=== PATIENT | female | born 1945 | race Caucasian/White ===

== ENCOUNTER 2018-09-27 11:51 | Observation (INO) | payer MEDICARE, BC ==
--- NOTE | 2018-09-27 12:38 | EDM.PDOC ---
ED HPI GENERAL MEDICAL PROBLEM - General Stated Complaint: N & V Diarrhea Time Seen by Provider: 09/27/18 12:36 - History of Present Illness INITIAL COMMENTS - FREE TEXT/NARRATIVE: Pt was brought in by ambulance by EMS. According to patient she claims she woke up at 4 Am today and had episode of vomiting. Since then she has been wretching and vomiting on and off. Vomitus is clear . Also she has had few loose stools since then. Last episode of loose stool was at 10 am today. No abdominal pain or distension. No fever or chills. No cough. Pt does have COPD and does use oxygen at home, her SPO2 is 100% on 4 liters O2. Pt was started on keflex for UTI and her think that might be the cause of her vomiting. No other complaints. Onset: Today Onset Date: 09/27/18 Onset Time: 04:00 Severity: Moderate - Related Data Allergies Allergy/AdvReac Type Severity Reaction Status Date / Time No Known Allergies Allergy Verified 09/27/18 12:27 ED ROS GENERAL - Review of Systems Review Of Systems: See Below Constitutional: Denies: Fever, Chills, Weakness HEENT: Reports: Other (hydration appears appropriate. Tongue adn waqas mucosa pink and moist. ). Denies: Rhinitis, Throat Pain, Throat Swelling Respiratory: Denies: Shortness of Breath, Wheezing, Pleuritic Chest Pain, Cough , Sputum Cardiovascular: Denies: Chest Pain, Lightheadedness GI/Abdominal: Reports: Diarrhea, Flatus, Vomiting. Denies: Abdominal Pain, Constipation, Distension, Nausea : Denies: Dysuria, Frequency Musculoskeletal: Denies: Joint Pain, Joint Swelling Skin: Denies: Bruising, Pruritis, Rash Neurological: Denies: Confusion, Dizziness ED EXAM, GENERAL - Physical Exam Exam: See Below Exam Limited By: No Limitations General Appearance: Alert, WD/WN, No Apparent Distress, Other (wretching in the emergency room, but no vomiting) Eye Exam: Bilateral Eye: EOMI, PERRL Ears: Normal External Exam, Normal Canal, Hearing Grossly Normal, Normal TMs Ear Exam: Bilateral Ear: Auricle Normal, Canal Normal, TM normal Nose: Normal Inspection, Normal Mucosa, No Blood Throat/Mouth: Normal Inspection, Normal Lips, Normal Teeth, Normal Gums, Normal Oropharynx, Normal Voice, No Airway Compromise, Other (oral mucosa and tongue are moist.) Head: Atraumatic, Normocephalic Neck: Normal Inspection, Supple, Non-Tender, Full Range of Motion Respiratory/Chest: No Respiratory Distress, Lungs Clear, Normal Breath Sounds, No Accessory Muscle Use, Chest Non-Tender Cardiovascular: Normal Peripheral Pulses, Regular Rate, Rhythm, No Edema, No Gallop, No JVD, No Murmur, No Rub GI/Abdominal: Normal Bowel Sounds, Soft, Non-Tender, No Organomegaly, No Distention, No Abnormal Bruit, No Mass Extremities: Normal Inspection, Normal Range of Motion, Non-Tender, Normal Capillary Refill, No Pedal Edema Neurological: Alert, Oriented Course - Vital Signs Text/Narrative:: Pt's CBC and BMP appear normal She does have low grade fever. Started with vomiting in the morning and had few bouts of diarrhea appears like viral gastroenteritis. Pt did has not and any episode of vomiting or diarrhea for about 2 hrs in the emergency room. She did receive 500ml of NS bolus and also zofran 4mg ODT. She has remained stable. Hydration is appropriate and renal function are stable. Pt and spouse reassured that patient might have had viral GE, which has settle down. Advised to control nausea and vomiting with zofran 4mg 3 times daily. Clear liquid diet for next 48 hrs. The diarrhea should gradually decrease. Pt advised to followup with her primary care provider next week for recheck. Last Recorded V/S: Last Vital Signs Temp 100.6 F 09/27/18 12:20 Pulse 66 09/27/18 12:20 Resp BP 99/55 L 09/27/18 12:20 Pulse Ox 92 L 09/27/18 12:20 - Orders/Labs/Meds Labs: Laboratory Tests 09/27/18 09/27/18 Range/Units 12:45 12:45 WBC 8.4 (4.0-11.0) K/uL RBC 4.39 (3.80-5.80) M/uL Hgb 13.3 (11.5-16.5) g/dL Hct 42.5 (37.0-47.0) % MCV 97 H (76-96) fL MCH 30.3 (27.0-32.0) pg MCHC 31.3 (31.0-35.0) g/dL RDW 14.2 (11.0-16.0) % Plt Count 112 L (150-500) K/uL MPV 12.4 H (6.0-10.0) fL Neut % (Auto) 87.3 H (45.0-70.0) % Lymph % (Auto) 4.4 L (20.0-40.0) % [place] % (Auto) 7.4 (3.0-10.0) % Eos % (Auto) 0.7 L (1.0-5.0) % Baso % (Auto) 0.2 (0.0-0.5) % Neut # (Auto) 7.29 (2.00-7.50) K/uL Lymph # (Auto) 0.37 L (1.50-4.00) K/uL [place] # (Auto) 0.62 (0.20-0.80) K/uL Eos # (Auto) 0.06 (0.04-0.40) K/uL Baso # (Auto) 0.02 (0.02-0.10) K/uL Sodium 142 (136-145) mmol/L Potassium 3.9 (3.5-5.1) mmol/L Chloride 101 (98-107) mmol/L Carbon Dioxide 31.8 (21.0-32.0) mmol/L Anion Gap 13.1 (5.0-15.0) mmol/L BUN 15 (8-26) mg/dL Creatinine 0.83 (0.55-1.02) mg/dL Est Cr Clr Drug Dosing TNP Estimated GFR (MDRD) > 60 (>60) MLS/MIN BUN/Creatinine Ratio 18.1 (6-25) Glucose 230 H (74-100) mg/dL Calcium 8.7 (8.5-10.1) mg/dL Total Bilirubin 1.2 H (0.0-1.0) mg/dL AST 24 (15-37) U/L ALT 27 (12-78) U/L Alkaline Phosphatase 46 (46-116) U/L Total Protein 6.2 L (6.4-8.2) g/dL Albumin 3.0 L (3.4-5.0) g/dL Globulin 3.2 (2.2-4.2) g/dL Albumin/Globulin Ratio 0.9 (0.8-2.0) Meds: Medications Discontinued Medications Generic Name Dose Route Start Last Admin Trade Name Andriy PRN Reason Stop Dose Admin Ondansetron HCl Confirm 09/27/18 13:49 Zofran Odt Administered 09/27/18 13:50 Dose 4 mg .ROUTE .STK-MED ONE Departure - Departure Time of Disposition: 14:00 Disposition: Home, Self-Care 01 Condition: Fair Clinical Impression: Viral gastroenteritis - Discharge Information *PRESCRIPTION DRUG MONITORING PROGRAM REVIEWED*: Not Applicable *COPY OF PRESCRIPTION DRUG MONITORING REPORT IN PATIENT LESIA: Not Applicable Additional Instructions: Pt's CBC and BMP appear normal She does have low grade fever. Started with vomiting in the morning and had few bouts of diarrhea appears like viral gastroenteritis. Pt did has not and any episode of vomiting or diarrhea for about 2 hrs in the emergency room. She did receive 500ml of NS bolus and also zofran 4mg ODT. She has remained stable. Hydration is appropriate and renal function are stable. Pt and spouse reassured that patient might have had viral GE, which has settle down. Advised to control nausea and vomiting with zofran 4mg 3 times daily. Clear liquid diet for next 48 hrs. The diarrhea should gradually decrease. Pt advised to followup with her primary care provider next week for recheck. - Problem List & Annotations (1) Viral gastroenteritis SNOMED Code(s): 354555587 Code(s): A08.4 - VIRAL INTESTINAL INFECTION, UNSPECIFIED Status: Acute Current Visit: Yes - Problem List Review Problem List Initiated/Reviewed/Updated: Yes - Assessment/Plan Assessment:: Viral GE Plan: Pt's CBC and BMP appear normal She does have low grade fever. Started with vomiting in the morning and had few bouts of diarrhea appears like viral gastroenteritis. Pt did has not and any episode of vomiting or diarrhea for about 2 hrs in the emergency room. She did receive 500ml of NS bolus and also zofran 4mg ODT. She has remained stable. Hydration is appropriate and renal function are stable. Pt and spouse reassured that patient might have had viral GE, which has settle down. Advised to control nausea and vomiting with zofran 4mg 3 times daily. Clear liquid diet for next 48 hrs. The diarrhea should gradually decrease. Pt advised to followup with her primary care provider next week for recheck.
[2018-09-27] MEDS ORDERED: Ondansetron 4 MG Tab.DIS ONE ×2 (13:49→14:00)
[2018-09-27] MEDS ORDERED: Sodium Chloride 0.9% 500 ML IV ONE (13:53)
[2018-09-27] MEDS ORDERED: Ondansetron 4 MG Tab.DIS PO ONE (15:53)
[2018-09-27] MEDS: Sodium Chloride 0.9% 1,000 ML IV SCH ×2 (16:00→22:20)
[2018-09-27] MEDS ORDERED: Ondansetron 4 MG/2 ML SDV IV PRN (16:41)
[2018-09-27] MEDS ORDERED: Sodium Chloride 0.9% 10 ML Syringe FLUSH PRN (16:41)
[2018-09-27] MEDS: predniSONE 5 MG Tab PO SCH (17:14)
[2018-09-27] MEDS ORDERED: Albuterol/Ipratropium 3.0-0.5 MG/3 ML Neb Soln NEB SCH (18:00)
[2018-09-27] MEDS ORDERED: Ipratropium 0.02% 0.5 MG/2.5 ML Neb Soln INH SCH (20:00)
[2018-09-27] MEDS ORDERED: Non-Formulary Medication 1 Each (Formoterol [Perforomist] 2 ML) IN SCH (20:00)
[2018-09-27] MEDS ORDERED: Acetaminophen 325 MG Tab PO PRN (21:05)
[2018-09-27] MEDS ORDERED: LORazepam 2 MG/ML SDV IM ONE (21:37)
[2018-09-27] MEDS ORDERED: Albuterol/Ipratropium 3.0-0.5 MG/3 ML Neb Soln NEB PRN (23:15)
[2018-09-28] MEDS: Sodium Chloride 0.9% 1,000 ML IV SCH (05:53)
[2018-09-28] MEDS: predniSONE 5 MG Tab PO SCH (07:59)
[2018-09-28] MEDS ORDERED: Oxybutynin 5 MG Tab.ER PO SCH (08:00)
--- NOTE | 2018-09-28 09:36 | PCM.DCSUM1 ---
Discharge Summary - Hospital Course Free Text/Narrative:: Pt was admitted yesterday with diagnosis of viral gastroenteritis, with acute diarrhea with nausea and vomiting for IV hydration. Pt did receive bolus of NS 500cc in the emergency room and was admitted for IV hydration of NS at 125cc/ hr. Pt has not had any episodes of vomiting or diarrhea since her admission. Pt was very weak yesterday and could not ambulate. Pt did have rios in place as she could not use a\bathroom yesterday and had incontinence and also she ahs a sacral decubitus ulcer stage 1. Today she has been feeding well and also able to walk to the bathroom and back to bed. Has been feeling better. As patient has been doing well and her Gastroenteritis has resolved and tolerating oral diet well,her Iv fluids have been discontinued. Has been planned for discharge. Pt advised to continue home meds and followup with her primary care provider this week for followup. Brief History: Presented to emergency room last morning with acute onset of diarrhea, nausea and vomiting. Pt was diagnosed with viral gastroentritis admitted to hospital for IV hydration. Diagnosis: Stroke: No - Discharge Data Discharge Date: 09/28/18 Discharge Disposition: DC/Tfer to Acute Hospital 02 Condition: Good - Discharge Diagnosis/Problem(s) (1) Viral gastroenteritis SNOMED Code(s): 188337032 ICD Code: A08.4 - VIRAL INTESTINAL INFECTION, UNSPECIFIED Status: Acute Current Visit: Yes - Patient Instructions Fluid Restriction: 1500 mL Activity: As Tolerated Showering/Bathing: October Shower - Discharge Plan *PRESCRIPTION DRUG MONITORING PROGRAM REVIEWED*: Not Applicable *COPY OF PRESCRIPTION DRUG MONITORING REPORT IN PATIENT LESIA: Not Applicable Home Medications: Home Meds Albuterol [Ventolin HFA] 2 inh INH Q4HWA 09/27/18 [History] Aspirin [Low Dose Aspirin EC] 81 mg PO DAILY 09/27/18 [History] Ergocalciferol (Vitamin D2) [Vitamin D2] 2,000 units PO DAILY 09/27/18 [History] Ferrous Sulfate 325 mg PO DAILY 09/27/18 [History] Formoterol [Perforomist] 2 ml IN BID 09/27/18 [History] Furosemide [Lasix] 20 mg PO ACLUNCH 09/27/18 [History] Furosemide [Lasix] 40 mg PO ACBREAKFAST 09/27/18 [History] Glimepiride [Amaryl] 2 mg PO ACDINNER 09/27/18 [History] Glimepiride [Amaryl] 4 mg PO ACBREAKFAST 09/27/18 [History] Insulin Glargine,Hum.Rec.Anlog [Basaglar Kwikpen U-100] 10 units SQ QPM [History] Ipratropium [Atrovent] 2.5 ml IN TID 09/27/18 [History] LORazepam 0.5 mg PO DAILY 09/27/18 [History] Metoprolol Succinate [Toprol Xl] 25 mg PO BID 09/27/18 [History] Omeprazole 20 mg PO DAILY 09/27/18 [History] Oxybutynin Chloride [Ditropan Xl] 20 mg PO DAILY 09/27/18 [History] Sulfamethoxazole/Trimethoprim [Bactrim 400-80 MG] 1 tab PO DAILY 09/27/18 [ History] Warfarin [Coumadin] 2.5 mg PO DAILY 09/27/18 [History] predniSONE [Prednisone] 15 mg PO DAILY 09/27/18 [History] Acetaminophen [Tylenol] 650 mg PO Q6H PRN tablet 09/28/18 [Rx] Albuterol/Ipratropium [DuoNeb 3.0-0.5 MG/3 ML] 3 ml NEB Q6H PRN neb 09/28/18 [ Rx] Referrals: PCP,None [Primary Care Provider] - - Discharge Summary/Plan Comment DC Time >30 min.: Yes - General Info Date of Service: 09/28/18 Functional Status: Reports: Pain Controlled, Ambulating, Urinating - Review of Systems General: Denies: Fever, Weakness, Fatigue HEENT: Denies: Headaches, Sinus Congestion, Sore Throat, Rhinitis Pulmonary: Denies: Shortness of Breath, Cough, Sputum, Hemoptysis Cardiovascular: Denies: Chest Pain, Lightheadedness Gastrointestinal: Reports: Flatus. Denies: Abdominal Pain, Diarrhea, Nausea, Vomiting Genitourinary: Denies: Dysuria, Burning Musculoskeletal: Denies: Joint Pain, Joint Swelling Skin: Denies: Bruising, Pruritis, Rash Neurological: Denies: Confusion, Dizziness, Headache, Numbness, Tingling - Patient Data Vitals - Most Recent: Last Vital Signs Temp 97.8 F 09/28/18 04:31 Pulse 100 09/27/18 21:00 Resp 22 H 09/27/18 21:00 BP 130/70 09/28/18 04:31 Pulse Ox 97 09/27/18 21:00 Weight - Most Recent: 111.765 kg I&O - Last 24 hours: Intake & Output 09/27/18 09/28/18 09/28/18 22:59 06:59 14:59 Intake Total 15 1931 Output Total 150 350 Balance -135 1581 Lab Results - Last 24 hrs: Laboratory Results - last 24 hr 09/27/18 09/27/18 09/27/18 Range/Units 12:45 12:45 15:16 WBC 8.4 (4.0-11.0) K/uL RBC 4.39 (3.80-5.80) M/uL Hgb 13.3 (11.5-16.5) g/dL Hct 42.5 (37.0-47.0) % MCV 97 H (76-96) fL MCH 30.3 (27.0-32.0) pg MCHC 31.3 (31.0-35.0) g/dL RDW 14.2 (11.0-16.0) % Plt Count 112 L (150-500) K/uL MPV 12.4 H (6.0-10.0) fL Neut % (Auto) 87.3 H (45.0-70.0) % Lymph % (Auto) 4.4 L (20.0-40.0) % [place] % (Auto) 7.4 (3.0-10.0) % Eos % (Auto) 0.7 L (1.0-5.0) % Baso % (Auto) 0.2 (0.0-0.5) % Neut # (Auto) 7.29 (2.00-7.50) K/uL Lymph # (Auto) 0.37 L (1.50-4.00) K/uL [place] # (Auto) 0.62 (0.20-0.80) K/uL Eos # (Auto) 0.06 (0.04-0.40) K/uL Baso # (Auto) 0.02 (0.02-0.10) K/uL Sodium 142 (136-145) mmol/L Potassium 3.9 (3.5-5.1) mmol/L Chloride 101 (98-107) mmol/L Carbon Dioxide 31.8 (21.0-32.0) mmol/L Anion Gap 13.1 (5.0-15.0) mmol/L BUN 15 (8-26) mg/dL Creatinine 0.83 (0.55-1.02) mg/dL Est Cr Clr Drug Dosing TNP Estimated GFR (MDRD) > 60 (>60) MLS/MIN BUN/Creatinine Ratio 18.1 (6-25) Glucose 230 H (74-100) mg/dL POC Glucose 257 H (74-110) mg/dL Calcium 8.7 (8.5-10.1) mg/dL Total Bilirubin 1.2 H (0.0-1.0) mg/dL AST 24 (15-37) U/L ALT 27 (12-78) U/L Alkaline Phosphatase 46 (46-116) U/L Total Protein 6.2 L (6.4-8.2) g/dL Albumin 3.0 L (3.4-5.0) g/dL Globulin 3.2 (2.2-4.2) g/dL Albumin/Globulin Ratio 0.9 (0.8-2.0) Urine Color Urine Appearance (CLEAR) Urine pH (5.0-8.0) Ur Specific [place] (1.003-1.030) Urine Protein (NEGATIVE) mg/dL Urine Glucose (UA) (NEGATIVE) mg/dL Urine Ketones (NEGATIVE) mg/dL Urine Occult Blood (NEGATIVE) Urine Nitrite (NEGATIVE) Urine Bilirubin (NEGATIVE) Urine Urobilinogen (0.2-1.0) E.U./dL Ur Leukocyte Esterase (NEGATIVE) Urine RBC /HPF Urine WBC /HPF Ur Squamous Epith Cells /HPF Urine Bacteria /HPF Hyaline Casts /HPF 09/27/18 09/28/18 Range/Units 21:32 07:20 WBC (4.0-11.0) K/uL RBC (3.80-5.80) M/uL Hgb (11.5-16.5) g/dL Hct (37.0-47.0) % MCV (76-96) fL MCH (27.0-32.0) pg MCHC (31.0-35.0) g/dL RDW (11.0-16.0) % Plt Count (150-500) K/uL MPV (6.0-10.0) fL Neut % (Auto) (45.0-70.0) % Lymph % (Auto) (20.0-40.0) % [place] % (Auto) (3.0-10.0) % Eos % (Auto) (1.0-5.0) % Baso % (Auto) (0.0-0.5) % Neut # (Auto) (2.00-7.50) K/uL Lymph # (Auto) (1.50-4.00) K/uL [place] # (Auto) (0.20-0.80) K/uL Eos # (Auto) (0.04-0.40) K/uL Baso # (Auto) (0.02-0.10) K/uL Sodium 141 (136-145) mmol/L Potassium 4.4 (3.5-5.1) mmol/L Chloride 106 (98-107) mmol/L Carbon Dioxide 30.3 (21.0-32.0) mmol/L Anion Gap 9.1 (5.0-15.0) mmol/L BUN 15 (8-26) mg/dL Creatinine 0.72 (0.55-1.02) mg/dL Est Cr Clr Drug Dosing 63.20 Estimated GFR (MDRD) > 60 (>60) MLS/MIN BUN/Creatinine Ratio 20.8 (6-25) Glucose 246 H (74-100) mg/dL POC Glucose (74-110) mg/dL Calcium 7.4 L (8.5-10.1) mg/dL Total Bilirubin (0.0-1.0) mg/dL AST (15-37) U/L ALT (12-78) U/L Alkaline Phosphatase (46-116) U/L Total Protein (6.4-8.2) g/dL Albumin (3.4-5.0) g/dL Globulin (2.2-4.2) g/dL Albumin/Globulin Ratio (0.8-2.0) Urine Color Brown Urine Appearance Cloudy (CLEAR) Urine pH 5.5 (5.0-8.0) Ur Specific [place] >= 1.030 (1.003-1.030) Urine Protein 100 H (NEGATIVE) mg/dL Urine Glucose (UA) 500 H (NEGATIVE) mg/dL Urine Ketones 80 H (NEGATIVE) mg/dL Urine Occult Blood Large H (NEGATIVE) Urine Nitrite Negative (NEGATIVE) Urine Bilirubin Moderate H (NEGATIVE) Urine Urobilinogen 0.2 (0.2-1.0) E.U./dL Ur Leukocyte Esterase Negative (NEGATIVE) Urine RBC 50-75 H /HPF Urine WBC Not seen /HPF Ur Squamous Epith Cells Rare /HPF Urine Bacteria Rare /HPF Hyaline Casts Occasional /HPF Med Orders - Current: Current Medications Acetaminophen (Tylenol) 650 mg PO Q6H PRN PRN Reason: Fever Last Admin: 09/27/18 21:54 Dose: 650 mg Albuterol/Ipratropium (Duoneb 3.0-0.5 Mg/3 Ml) 3 ml NEB Q6H PRN PRN Reason: Wheezing Stop: 09/28/18 18:01 Sodium Chloride (Normal Saline) 1,000 mls @ 125 mls/hr IV ASDIRECTED [facility] Last Admin: 09/28/18 05:53 Dose: 125 mls/hr Ondansetron HCl (Zofran) 4 mg IV Q6H PRN PRN Reason: Nausea/Vomiting Oxybutynin Chloride (Oxybutynin Er) 20 mg PO DAILY [facility] Last Admin: 09/28/18 07:58 Dose: 20 mg Prednisone (Prednisone) 15 mg PO DAILY [facility] Last Admin: 09/28/18 07:59 Dose: 15 mg Sodium Chloride (Saline Flush) 10 ml FLUSH ASDIRECTED PRN PRN Reason: Keep Vein Open Discontinued Medications Albuterol/Ipratropium (Duoneb 3.0-0.5 Mg/3 Ml) 3 ml NEB Q6H [facility] Stop: 09/28/18 18:01 Last Admin: 09/27/18 23:32 Dose: Not Given Sodium Chloride (Normal Saline) 500 mls @ 500 mls/hr IV .BOLUS ONE Stop: 09/27/18 14:52 Last Admin: 09/27/18 14:00 Dose: 500 mls/hr Ipratropium [place] (Atrovent) 0.5 mg INH TID [facility] Lorazepam (Ativan) 1 mg IM ONETIME ONE Stop: 09/27/18 21:38 Last Admin: 09/27/18 21:55 Dose: 1 mg Non-Formulary Medication (Formoterol [Perforomist]) 2 ml IN BID JUSTYN Ondansetron HCl (Zofran Odt) Confirm Administered Dose 4 mg .ROUTE .STK-MED ONE Stop: 09/27/18 13:50 Last Admin: 09/27/18 14:07 Dose: 4 mg Ondansetron HCl (Zofran Odt) 4 mg PO ONETIME ONE Stop: 09/27/18 15:54 Last Admin: 09/27/18 17:12 Dose: Not Given Ondansetron HCl (Zofran Odt) 20 mg .ROUTE .STK-MED ONE Stop: 09/27/18 14:01 - Exam Quality Assessment: Reports: Supplemental Oxygen General: Reports: Alert, Oriented, Cooperative HEENT: Reports: Pupils Equal, Pupils Reactive, EOMI, Mucous Membr. Moist/[place] Neck: Reports: Supple Lungs: Reports: Normal Respiratory Effort, Decreased Breath Sounds Cardiovascular: Reports: Regular Rate, Regular Rhythm GI/Abdominal Exam: Normal Bowel Sounds, Soft, Non-Tender, No Organomegaly, No Distention, No Abnormal Bruit, No Mass, Pelvis Stable Extremities: Normal Inspection, Normal Range of Motion, Non-Tender, No Pedal Edema, Normal Capillary Refill Skin: Reports: Warm, Intact
== END 2018-09-28 10:35 ==
LOC: LB.ED 11:51 → LB.MS 15:54 → UNDOADMOB 16:00 → LB.MS 16:00
PROVIDERS: ADMIT Family Medicine; ATTEND Family Medicine
DX: A08.4 Viral intestinal infection, unspecified (principal); J44.9 Chronic obstructive pulmonary disease, unspecified; L89.151 Pressure ulcer of sacral region, stage 1; Z79.84 Long term (current) use of oral hypoglycemic drugs; Z79.82 Long term (current) use of aspirin; Z79.899 Other long term (current) drug therapy; Z99.81 Dependence on supplemental oxygen
CPT/HCPCS: 36415; 51702; 80048; 80053; 81001; 82962; 85025; 96360; 96361; 96372; 99285-25; A0425; A0429; A9270-GY; G0378; J2060; J7030; J7040

== ENCOUNTER 2019-05-17 07:52 | Emergency (ER) | payer MEDICARE, BC ==
[2019-05-17] MEDS ORDERED: Albuterol/Ipratropium 3.0-0.5 MG/3 ML Neb Soln NEB SCH (08:45)
[2019-05-17] MEDS: Albuterol/Ipratropium 3.0-0.5 MG/3 ML Neb Soln ONE ×2 (09:10→13:50)
[2019-05-17] MEDS: Albuterol/Ipratropium 3.0-0.5 MG/3 ML Neb Soln NEB ONE ×2 (09:10→18:24)
--- NOTE | 2019-05-17 09:29 | CR ---
Date of Service: 05/17/19 Clinical Data: Shortness of breath AP PORTABLE CHEST: No priors. The patient has taken a poor inspiration. The heart is enlarged. There is a large mass involving the right hilum and right suprahilar region with extension to the lateral chest wall. This is very suspicious for a malignancy. Chest CT is recommended. There are densities in both lung bases consistent with basilar atelectasis or infiltrate. There is blunting of both costophrenic angles suggesting small bilateral pleural effusions. No other significant findings. IMPRESSION: Abnormal exam. Large mass right hilum suspicious for malignancy. Chest CT is recommended. [id number] MTDD
[2019-05-17] MEDS: LORazepam 0.5 MG Tab PO ONE (09:35)
[2019-05-17] MEDS: Sodium Chloride 0.9% 1,000 ML IV SCH ×2 (09:50→13:30)
[2019-05-17] MEDS: methylPREDNISolone Sodium Succinate 125 MG/2 ML SDV IVPUSH ONE (10:04)
[2019-05-17] MEDS: Diltiazem 25 MG/5 ML SDV IVPUSH ONE (10:49)
[2019-05-17] MEDS: methylPREDNISolone Sodium Succinate 125 MG/2 ML SDV ONE (11:03)
[2019-05-17] MEDS: LORazepam 0.5 MG Tab ONE ×4 (11:06→17:19)
[2019-05-17] MEDS: Diltiazem 50 MG/10 ML SDV IVPUSH ONE (12:07)
[2019-05-17] MEDS: cefTRIAXone 1 GM in Sodium Chloride 0.9% 50 ML IV ONE (13:45)
[2019-05-17] MEDS ORDERED: LORazepam 0.5 MG Tab PO PRN (14:15)
[2019-05-17] MEDS: cefTRIAXone 1 GM Vial ONE (17:20)
[2019-05-17] MEDS: Diltiazem 100 MG in Sodium Chloride 0.9% 100 ML IV SCH (17:55)
--- NOTE | 2019-05-17 18:45 | EDM.PDOC ---
ED HPI GENERAL MEDICAL PROBLEM - General Chief Complaint: Respiratory Problem Stated Complaint: SOB Time Seen by Provider: 05/17/19 09:00 Source of Information: Reports: Patient History Limitations: Reports: No Limitations - History of Present Illness INITIAL COMMENTS - FREE TEXT/NARRATIVE: This is a 73yo F here for shortness of breath that has been ongoing for the past month. She notes that she has been short of breath all the time and states it is just bad all the time especially the past month. She is very anxious and breathing rapidly. Patient has a history of A-fib and is on coumadin, has a history of lung cancer with treatment and residual lung damage on prednisone. Onset: Unknown/Unsure Duration: Week(s): (4) Location: Reports: Chest Severity: Moderate Improves with: Reports: None Worsens with: Reports: Movement Associated Symptoms: Reports: Shortness of Breath Treatments MEDICAL BILLING AND CODING SPECIALIST: Reports: Oxygen, Other (see below) Other Treatments MEDICAL BILLING AND CODING SPECIALIST: nebulizers - Related Data Allergies Allergy/AdvReac Type Severity Reaction Status Date / Time levofloxacin [From Levaquin] Allergy Confusion Verified 05/17/19 11:18 Home Meds: Home Meds Albuterol [Ventolin HFA] 2 inh INH Q4HWA 09/27/18 [History] Aspirin [Low Dose Aspirin EC] 81 mg PO DAILY 09/27/18 [History] Ferrous Sulfate 325 mg PO DAILY 09/27/18 [History] Formoterol [Perforomist] 2 ml IN BID 09/27/18 [History] Glimepiride [Amaryl] 2 mg PO ACDINNER 09/27/18 [History] Glimepiride [Amaryl] 4 mg PO ACBREAKFAST 09/27/18 [History] Ipratropium [Atrovent] 2.5 ml IN TID 09/27/18 [History] LORazepam 0.5 mg PO DAILY 09/27/18 [History] Metoprolol Succinate [Toprol Xl] 25 mg PO BID 09/27/18 [History] Omeprazole 20 mg PO DAILY 09/27/18 [History] Oxybutynin Chloride [Ditropan Xl] 10 mg PO DAILY 09/27/18 [History] Sulfamethoxazole/Trimethoprim [Bactrim 400-80 MG] 1 tab PO DAILY 09/27/18 [ History] Warfarin [Coumadin] 2.5 mg PO DAILY 09/27/18 [History] predniSONE [Prednisone] 40 mg PO DAILY 09/27/18 [History] Acetaminophen [Tylenol] 650 mg PO Q6H PRN tablet 09/28/18 [Rx] Albuterol/Ipratropium [DuoNeb 3.0-0.5 MG/3 ML] 3 ml NEB Q6H PRN neb 09/28/18 [ Rx] Insulin Glarg,Human.Rec.Analog [Lantus Solostar] 10 unit SUBCUT QAM 05/17/19 [ History] Past Medical History HEENT History: Reports: Cataract, Hard of Hearing, Impaired Vision Cardiovascular History: Reports: Afib, Blood Clots/VTE/DVT, Heart Failure, Hypertension Respiratory History: Reports: COPD, Other (See Below) Other Respiratory History: hx lung cancer and in lymphs 2011. Had radiation and chemo. States she had blood clots "around her ticker" Gastrointestinal History: Reports: Chronic Diarrhea, GERD, Hemorrhoids Genitourinary History: Reports: Urinary Incontinence, UTI, Recurrent CIRCULATING NURSE History: Reports: , Other (See Below) Other CIRCULATING NURSE History: hysterectomy Neurological History: Reports: Migraines Endocrine/Metabolic History: Reports: Diabetes, Type II, Obesity/BMI 30+ Oncologic (Cancer) History: Reports: Lung, Lymphoma - Infectious Disease History Infectious Disease History: Reports: Chicken Pox, Measles, Mumps, Shingles - Past Surgical History HEENT Surgical History: Reports: Tonsillectomy Respiratory Surgical History: Reports: Lung Biopsies, Other (See Below) Other Respiratory Surgeries/Procedures: irradiation and chemo to right side, minimal functioning to that side, some effect to left upper lobe GI Surgical History: Reports: Cholecystectomy Female Surgical History: Reports: Cystectomy, Hysterectomy, Other (See Below) Other Female Surgeries/Procedures: on fallopian tube removed, Social & Family History - Family History Family Medical History: Noncontributory - Tobacco Use Smoking Status *Q: Former Smoker Used Tobacco, but Quit: Yes Month/Year Tobacco Last Used: 2002 - Caffeine Use Caffeine Use: Reports: Tea Other Caffeine Use: 3 cups of tea a week - Recreational Drug Use Recreational Drug Use: No ED ROS GENERAL - Review of Systems Review Of Systems: Comprehensive ROS is negative, except as noted in HPI. Constitutional: Reports: Weakness HEENT: Reports: No Symptoms Respiratory: Reports: Shortness of Breath Cardiovascular: Reports: Dyspnea on Exertion, Palpitations GI/Abdominal: Reports: No Symptoms : Reports: No Symptoms Musculoskeletal: Reports: No Symptoms Skin: Reports: No Symptoms ED EXAM, GENERAL - Physical Exam Exam: See Below Exam Limited By: No Limitations General Appearance: Alert, WD/WN, Anxious, Moderate Distress Eye Exam: Bilateral Eye: EOMI, PERRL Ears: Normal External Exam Nose: Normal Inspection Throat/Mouth: Normal Inspection Head: Atraumatic, Normocephalic Neck: Normal Inspection, Supple, Non-Tender Respiratory/Chest: Respiratory Distress, Decreased Breath Sounds Cardiovascular: Irregularly Irregular Peripheral Pulses: 2+: Dorsalis Pedis (L), Dorsalis Pedis (R) GI/Abdominal: Normal Bowel Sounds, Soft, Non-Tender Extremities: Normal Inspection Neurological: Alert, Oriented, CN II-XII Intact Psychiatric: Normal Affect, Normal Mood Course - Vital Signs Last Recorded V/S: Last Vital Signs Temp 36.3 C 05/17/19 08:58 Pulse 117 H 05/17/19 12:35 Resp 28 H 05/17/19 08:58 BP 139/89 05/17/19 15:48 Pulse Ox 95 05/17/19 15:48 - Orders/Labs/Meds Orders: Active Orders 24 hr Category Date Time Status RT Aerosol Therapy [RC] ASDIRECTED Care 05/17/19 18:21 Active Labs: Laboratory Tests 05/17/19 05/17/19 05/17/19 Range/Units 08:00 08:00 09:05 WBC 13.0 H D (4.0-11.0) K/uL RBC 3.92 (3.80-5.80) M/uL Hgb 11.6 (11.5-16.5) g/dL Hct 39.5 (37.0-47.0) % MCV 101 H (76-96) fL MCH 29.6 (27.0-32.0) pg MCHC 29.4 L (31.0-35.0) g/dL RDW 14.3 (11.0-16.0) % Plt Count 276 D (150-500) K/uL MPV 12.8 H (6.0-10.0) fL Neut % (Auto) 74.1 H (45.0-70.0) % Lymph % (Auto) 13.9 L (20.0-40.0) % [facility] % (Auto) 11.6 H (3.0-10.0) % Eos % (Auto) 0.2 L (1.0-5.0) % Baso % (Auto) 0.2 (0.0-0.5) % Neut # (Auto) 9.62 H (2.00-7.50) K/uL Lymph # (Auto) 1.81 (1.50-4.00) K/uL [facility] # (Auto) 1.50 H (0.20-0.80) K/uL Eos # (Auto) 0.02 L (0.04-0.40) K/uL Baso # (Auto) 0.03 (0.02-0.10) K/uL VBG pH (7.31-7.41) Sodium (136-145) mmol/L Potassium (3.5-5.1) mmol/L Chloride (98-107) mmol/L Carbon Dioxide (21.0-32.0) mmol/L Anion Gap (5.0-15.0) mmol/L BUN (8-26) mg/dL Creatinine (0.55-1.02) mg/dL Est Cr Clr Drug Dosing Estimated GFR (MDRD) (>60) MLS/MIN BUN/Creatinine Ratio (6-25) Glucose (74-100) mg/dL Lactic Acid (0.90-1.70) mmol/L Calcium (8.5-10.1) mg/dL Total Bilirubin (0.0-1.0) mg/dL AST (15-37) U/L ALT (12-78) U/L Alkaline Phosphatase (46-116) U/L Troponin I 0.028 (0.000-0.060) ng/mL B-Natriuretic Peptide 3897 H (0-450) pg/mL Total Protein (6.4-8.2) g/dL Albumin (3.4-5.0) g/dL Globulin (2.2-4.2) g/dL Albumin/Globulin Ratio (0.8-2.0) 05/17/19 05/17/19 05/17/19 Range/Units 09:05 09:05 09:05 WBC (4.0-11.0) K/uL RBC (3.80-5.80) M/uL Hgb (11.5-16.5) g/dL Hct (37.0-47.0) % MCV (76-96) fL MCH (27.0-32.0) pg MCHC (31.0-35.0) g/dL RDW (11.0-16.0) % Plt Count (150-500) K/uL MPV (6.0-10.0) fL Neut % (Auto) (45.0-70.0) % Lymph % (Auto) (20.0-40.0) % [facility] % (Auto) (3.0-10.0) % Eos % (Auto) (1.0-5.0) % Baso % (Auto) (0.0-0.5) % Neut # (Auto) (2.00-7.50) K/uL Lymph # (Auto) (1.50-4.00) K/uL [facility] # (Auto) (0.20-0.80) K/uL Eos # (Auto) (0.04-0.40) K/uL Baso # (Auto) (0.02-0.10) K/uL VBG pH 7.30 L (7.31-7.41) Sodium 143 (136-145) mmol/L Potassium 5.6 H D (3.5-5.1) mmol/L Chloride 101 (98-107) mmol/L Carbon Dioxide 32.9 H (21.0-32.0) mmol/L Anion Gap 14.7 (5.0-15.0) mmol/L BUN 30 H D (8-26) mg/dL Creatinine 1.30 H D (0.55-1.02) mg/dL Est Cr Clr Drug Dosing TNP Estimated GFR (MDRD) 40 L (>60) MLS/MIN BUN/Creatinine Ratio 23.1 (6-25) Glucose 371 H D (74-100) mg/dL Lactic Acid 7.91 H (0.90-1.70) mmol/L Calcium 9.8 D (8.5-10.1) mg/dL Total Bilirubin 0.6 D (0.0-1.0) mg/dL AST 29 (15-37) U/L ALT 29 (12-78) U/L Alkaline Phosphatase 132 H (46-116) U/L Troponin I (0.000-0.060) ng/mL B-Natriuretic Peptide (0-450) pg/mL Total Protein 6.7 (6.4-8.2) g/dL Albumin 3.2 L (3.4-5.0) g/dL Globulin 3.5 (2.2-4.2) g/dL Albumin/Globulin Ratio 0.9 (0.8-2.0) Meds: Medications Discontinued Medications Generic Name Dose Route Start Last Admin Trade Name Freq PRN Reason Stop Dose Admin Albuterol/Ipratropium 3 ml 05/17/19 08:45 Duoneb 3.0-0.5 Mg/3 Ml NEB Q6H JUSTYN Albuterol/Ipratropium 3 ml 05/17/19 08:44 05/17/19 09:10 Duoneb 3.0-0.5 Mg/3 Ml NEB 05/17/19 08:45 3 ml Q6H ONE Administration Albuterol/Ipratropium Confirm 05/17/19 09:15 05/17/19 09:10 Duoneb 3.0-0.5 Mg/3 Ml Administered 05/17/19 09:16 Not Given Dose 3 ml .ROUTE .STK-MED ONE Albuterol/Ipratropium Confirm 05/17/19 13:59 05/17/19 13:50 Duoneb 3.0-0.5 Mg/3 Ml Administered 05/17/19 14:00 3 ml Dose Administration 3 ml .ROUTE .STK-MED ONE Albuterol/Ipratropium 3 ml 05/17/19 13:50 05/17/19 18:24 Duoneb 3.0-0.5 Mg/3 Ml NEB 05/17/19 13:51 Not Given ONETIME ONE Ceftriaxone Sodium Confirm 05/17/19 13:45 05/17/19 17:20 Rocephin Administered 05/17/19 13:46 Not Given Dose 1 gm .ROUTE .STK-MED ONE Diltiazem HCl 25 mg 05/17/19 10:18 05/17/19 10:49 Diltiazem IVPUSH 05/17/19 10:19 25 mg ONETIME ONE Administration Diltiazem HCl 30 mg 05/17/19 12:07 05/17/19 12:07 Cardizem IVPUSH 05/17/19 12:08 30 mg ONETIME ONE Administration Sodium Chloride 1,000 mls @ 250 mls/hr 05/17/19 10:30 05/17/19 09:50 Normal Saline IV 05/17/19 14:29 250 mls/hr ASDIRECTED JUSTYN Administration Ceftriaxone Sodium 1 gm/ 50 mls @ 200 mls/hr 05/17/19 13:34 05/17/19 13:45 Sodium Chloride IV 05/17/19 13:48 200 mls/hr ONETIME ONE Administration Sodium Chloride 1,000 mls @ 250 mls/hr 05/17/19 13:00 05/17/19 13:30 Normal Saline IV 250 mls/hr ASDIRECTED JUSTYN Administration Diltiazem HCl 100 mg/ Sodium 100 mls @ 5 mls/hr 05/17/19 14:35 05/17/19 17:55 Chloride IV 5 mg/hr TITRATE JUSTYN 5 mls/hr Administration Protocol 5 MG/HR Lorazepam Confirm 05/17/19 09:42 05/17/19 11:06 Ativan Administered 05/17/19 09:43 Not Given Dose 0.5 mg .ROUTE .STK-MED ONE Lorazepam 0.5 mg 05/17/19 09:35 05/17/19 09:35 Ativan PO 05/17/19 09:36 0.5 mg ONETIME ONE Administration Lorazepam Confirm 05/17/19 14:20 05/17/19 14:15 Ativan Administered 05/17/19 14:21 0.5 mg Dose Administration 0.5 mg .ROUTE .STK-MED ONE Lorazepam Confirm 05/17/19 15:11 05/17/19 17:10 Ativan Administered 05/17/19 15:12 0.5 mg Dose Administration 0.5 mg .ROUTE .STK-MED ONE Lorazepam Confirm 05/17/19 16:08 05/17/19 17:19 Ativan Administered 05/17/19 16:09 0.5 mg Dose Administration 0.5 mg .ROUTE .STK-MED ONE Lorazepam 0.5 mg 05/17/19 14:15 Ativan PO ASDIRECTED PRN Anxiety Methylprednisolone Sodium Succinate Confirm 05/17/19 10:04 05/17/19 11:03 Solu-Medrol Administered 05/17/19 10:05 Not Given Dose 125 mg .ROUTE .STK-MED ONE Methylprednisolone Sodium Succinate 125 mg 05/17/19 10:00 05/17/19 10:04 Solu-Medrol IVPUSH 05/17/19 10:01 125 mg ONETIME ONE Administration Departure - Departure Time of Disposition: 16:00 Disposition: DC/Tfer to Acute Hospital 02 Condition: Fair Clinical Impression: Atrial fibrillation with RVR Pneumonia Qualifiers: Pneumonia type: due to unspecified organism Laterality: bilateral Lung location : lower lobe of lung Qualified Code(s): J18.9 - Pneumonia, unspecified organism Sepsis Qualifiers: Sepsis type: sepsis due to unspecified organism Sepsis acute organ dysfunction status: unspecified Qualified Code(s): A41.9 - Sepsis, unspecified organism - Discharge Information Referrals: PCP,None [Primary Care Provider] - Forms: ED Department Discharge - Problem List & Annotations (1) Atrial fibrillation with RVR SNOMED Code(s): 747368816047685 Code(s): I48.91 - UNSPECIFIED ATRIAL FIBRILLATION Status: Acute Priority : High (2) Pneumonia SNOMED Code(s): 320449999 Code(s): J18.9 - PNEUMONIA, UNSPECIFIED ORGANISM Status: Acute Priority: High Qualifiers: Pneumonia type: due to unspecified organism Laterality: bilateral Lung location: lower lobe of lung Qualified Code(s): J18.9 - Pneumonia, unspecified organism (3) Sepsis SNOMED Code(s): 90768916 Code(s): A41.9 - SEPSIS, UNSPECIFIED ORGANISM Status: Acute Priority: High Qualifiers: Sepsis type: sepsis due to unspecified organism Sepsis acute organ dysfunction status: unspecified Qualified Code(s): A41.9 - Sepsis, unspecified organism - Problem List Review Problem List Initiated/Reviewed/Updated: Yes - My Orders Last 24 Hours: My Active Orders 05/17/19 18:21 RT Aerosol Therapy [RC] ASDIRECTED - Assessment/Plan Last 24 Hours: My Active Orders 05/17/19 18:21 RT Aerosol Therapy [RC] ASDIRECTED Plan: Discussed plan of care with patient and . Discussed possible pneumonia with acute CHF exacerbation, A-fib with rvr and the need for further level of care. Called [facility] for transfer and accepting obtained. Patient pending bed. Called for status and not ETA for bed although [facility] felt there is a discharge but unknown time of discharge. Patient has been waiting for over 5 hours. We will continue transfer to [place]. Accepting obtained and transfer by setup.
== END 2019-05-17 16:15 ==
LOC: LB.ED 07:52
DX: A41.9 Sepsis, unspecified organism (principal); I48.91 Unspecified atrial fibrillation; J18.9 Pneumonia, unspecified organism; J44.9 Chronic obstructive pulmonary disease, unspecified; I10 Essential (primary) hypertension; K21.9 Gastro-esophageal reflux disease without esophagitis; E11.9 Type 2 diabetes mellitus without complications; Z86.718 Personal history of other venous thrombosis and embolism; E66.9 Obesity, unspecified; Z87.891 Personal history of nicotine dependence; Z88.1 Allergy status to other antibiotic agents; Z79.01 Long term (current) use of anticoagulants; Z79.82 Long term (current) use of aspirin; Z79.4 Long term (current) use of insulin; Z79.899 Other long term (current) drug therapy
CPT/HCPCS: 36415; 71045; 80053; 82800; 83605; 83880; 84484; 85025; 93005; 94640; 96361; 96374; 96375; 99285-25; A9270-GY; J0696; J2930; J3490; J7030; J7050; J7620-GY